=== PATIENT | male | born 1970 | race African-American/Black ===

== ENCOUNTER 2019-08-22 11:20 | Emergency (ER) | payer SELFPAY ==
[~2019-08-22] VITALS: Ht 182.9 cm; Wt 81.0 kg
[2019-08-22] MEDS ORDERED: IPRATROPIUM BROMIDE (0.02%) 0.5MG/2.5ML NEB HHN ONE (12:00)
[2019-08-22] MEDS ORDERED: ALBUTEROL (0.083%) 2.5MG/3ML NEB HHN ONE (12:00)
[2019-08-22] MEDS ORDERED: METHYLPREDNISOLONE SOD SUCC 125 MG/2 ML VIAL IM ONE (12:00)
[2019-08-22] MEDS ORDERED: ACETAMINOPHEN 325MG TABLET PO ONE (12:30)
[2019-08-22 13:40] VITALS: BP 121/80
== END 2019-08-22 13:42 | disposition home or self-care (01) ==
LOC: ER 11:20
DX: J45.901 Unspecified asthma with (acute) exacerbation (principal)
CPT/HCPCS: 71045; 94640; 96372; 99283; J2930; Z7610